=== PATIENT | female | born 1965 | race Caucasian/White ===

== ENCOUNTER 2017-01-16 07:17 | Day surgery (SDC) | payer BC ==
[~2017-01-16 07:17] MED LIST: Buffered Lidocaine 0.9% SYRIN* 5 ML/SYR SYRINGE INTRADERM ONE; Famotidine IV* 10 MG/ML 2 ML (20 mg) IV ONE
[2017-01-16] MEDS ORDERED: fentaNYL* 50 MCG/ML 2 ML VIAL (100 MCG VIAL) IV PRN (07:18)
[2017-01-16] MEDS ORDERED: oxyCODONE/Acetamin 5/325 MG* TAB PO PRN ×2 (07:18→10:27)
[2017-01-16] MEDS ORDERED: PROCHLORPERAZINE INJ 5 MG/ML 2 ML VIAL IV PRN (07:18)
[2017-01-16] MEDS ORDERED: Scopolamine 1.5 mg* PATCH TRANSDERM PRN (07:18)
[2017-01-16] MEDS ORDERED: Morphine INJ* 2 MG/ML 1 ML CARPUJECT IV PRN (07:18)
[2017-01-16] MEDS ORDERED: Famotidine IV* 10 MG/ML 2 ML (20 mg) ONE (07:26)
[2017-01-16] MEDS ORDERED: Buffered Lidocaine 0.9% SYRIN* 5 ML/SYR SYRINGE ONE (07:31)
[2017-01-16] MEDS ORDERED: ceFAZolin 2 GM PREMIX (*) 2 GM/50 ML BAG IVPB ONE (07:31)
[2017-01-16] MEDS ORDERED: fentaNYL* 50 MCG/ML 2 ML VIAL (100 MCG VIAL) ONE (08:15)
[2017-01-16] MEDS ORDERED: Midazolam* 1 MG/ML 5 ML VIAL (5 MG) ONE (08:15)
[2017-01-16] MEDS ORDERED: KETAMINE HCL* 50 MG/ML 10 ML VIAL ONE (08:15)
[2017-01-16] MEDS ORDERED: Bupivacaine 0.5% SDV PF* 30 ML VIAL ONE (08:55)
[2017-01-16] MEDS ORDERED: Lidocaine 1% MPF wEPI 200,000* 30 ML SDV ONE (08:55)
[2017-01-16] MEDS ORDERED: Ondansetron INJ* 2 MG/ML VIAL ONE (10:08)
[2017-01-16] MEDS ORDERED: Lidocaine 2% PF* 10 ML AMP ONE (10:08)
[2017-01-16] MEDS ORDERED: Dexamethasone IV* 4 MG/ML 1 ML (4 MG) ONE (10:08)
[2017-01-16] MEDS ORDERED: Propofol* 10 MG/ML 20 ML BTL IV PUSH ONE (10:08)
[2017-01-16] MEDS ORDERED: Ketorolac INJ* 30 MG/ML 1 ML VIAL ONE (10:08)
[2017-01-16 12:30] VITALS: BP 145/78
--- NOTE | 2017-01-16 23:14 | OP ---
CC: Dr. Maxwell; [facility] OPERATIVE REPORT: DATE OF OPERATION: 01/16/17 DATE OF : 69 SURGEON: Dr. Maxwell. MANAGER MEDICAL AFFAIRS: HANNAH Zaldivar ANESTHESIOLOGIST: Dr. Siddiqui. ANESTHESIA: LMAC anesthesia. 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 POST-OP DIAGNOSIS: Phyllodes tumor of the left breast. OPERATIVE PROCEDURE: Left breast reexcision. DESCRIPTION OF PROCEDURE: The patient was supine on the operative table. After adequate intravenou s sedation, compression stockings, Oscar Hugger warmer, and intravenous antibiotics, left breast was prepped with antiseptic and draped in a sterile fashion. Local infiltrative anesthesia was administ ered. Elliptical incision was created encompassing the previous incision and then tissue was taken around the previous biopsy cavity with greater attention to the area where the positive margin was w hich was medial and superior and a piece of tissue approximately 4 x 3 x 5 cm was removed, marked wi th the usual localizing sutures and sent in formalin for pathologic evaluation. Hemostasis was obta ined using electrocautery or suture where appropriate. The operative field was irrigated with salin e. Hemostasis was again confirmed and the skin was closed with 3-0 and 5-0 Vicryl followed by Steri -Strips. She tolerated the procedure well, was awakened and brought to Recovery. There were no com plications, no drains. Pathologic specimen as above. Sponge and instrument counts correct. Estima tiesha blood loss50 mL. [id number]/[facility] #: [id number]
[2017-01-19] MEDS ORDERED: Scopolomine PATCH Remove* 1 NOTE MISC PATCH OFF ONE (07:19)
== END 2017-01-16 11:47 | disposition home or self-care (01) ==
LOC: OR 07:17 → MERGE 07:17 → OR 11:47
PROVIDERS: ATTEND Surgery
DX: D48.62 Neoplasm of uncertain behavior of left breast (principal); I10 Essential (primary) hypertension; E11.9 Type 2 diabetes mellitus without complications; J45.909 Unspecified asthma, uncomplicated; Z72.0 Tobacco use
CPT/HCPCS: 81025; 88307; J0690; J1100; J1885; J2001; J2250; J2405; J2704; J3010